=== PATIENT | female | born 1995 | race Two or more races ===

== ENCOUNTER 2024-04-21 11:20 | Observation (INO) | payer MEDICAID, SELFPAY ==
[2024-04-21 11:32] VITALS: BP 118/63; PULSE 84
[2024-04-21 11:58] VITALS: BP 118/63; PULSE 97; RESP 16; RESP 98; TEMP 36.8; O2SAT 98; BMI 28.5
[2024-04-21 12:07] LABS: ROM Kit Lot # 57807903; ROM Swab Mixed By: VALDM1; Rupture of Fetal Membranes Negative (Negative); Swb Mxed in Solvent 1 min? Yes
== END 2024-04-21 12:31 | disposition home or self-care (01) ==
PROVIDERS: Admitting Provider Obstetrics & Gynecology; Visit Provider Obstetrics & Gynecology
DX: Z34.83 Encounter for supervision of other normal pregnancy, third trimester (principal); Z3A.37 37 weeks gestation of pregnancy
CPT/HCPCS: 59025; 59899; 84112

== ENCOUNTER 2024-04-28 09:23 | Observation (INO) | payer MEDICAID, SELFPAY ==
[2024-04-28 09:33] VITALS: BP 109/67; PULSE 83
[2024-04-28 09:43] VITALS: BP 109/67; PULSE 83; RESP 16; RESP 98; TEMP 36.6
[2024-04-28 10:02] VITALS: BMI 28.6
[2024-04-28 10:02] LABS: Collection Type, Urine Clean Catch
[2024-04-28 10:09] LABS: Bacteria,Urine 2+; Bilirubin,Urine Negative (Negative); Blood,Urine Negative (Negative); Clarity,Urine Clear (Clear/Hazy); Color,Urine Colorless (Lt Yel-Yel); Glucose, Urine Negative (Negative); Ketones,Urine Negative (Negative); Leukocyte Esterase,Urine Negative (Negative); Nitrite,Urine Negative (Negative); Protein,Urine Negative (Neg - Trace); RBC,Urine < 1 /hpf (0-3); Specific Gravity,Urine 1.003 (1.001-1.035); Squamous Epithelial Cell,Urine < 1 /hpf (0-5); Urobilinogen,Urine Negative mg/dL (0.0-1.0); WBC,Urine 1 /hpf (0-5)
== END 2024-04-28 12:17 | disposition home or self-care (01) ==
PROVIDERS: Admitting Provider Obstetrics & Gynecology; Visit Provider Obstetrics & Gynecology
DX: O26.893 Other specified pregnancy related conditions, third trimester (principal); Z3A.38 38 weeks gestation of pregnancy; M54.9 Dorsalgia, unspecified; R30.9 Painful micturition, unspecified
CPT/HCPCS: 59025; 59899; 81001

== ENCOUNTER 2024-05-05 05:04 | Inpatient (IN) | payer MEDICAID, SELFPAY ==
[2024-05-05] VITALS (34 sets, daily range): BP systolic 93–126; BP diastolic 56–80; PULSE 67–98; RESP 12–20; TEMP 36.4–37.1; O2SAT 98–100; BMI 27.2
--- NOTE | 2024-05-05 06:24 | PD.LDHP ---
Documentation for date of: 05/05/24 OB Labor/Induct. HPI History of Present Illness History of present illness: 28-year-old -0-0-1 at 39 weeks and 3 days admitted for repeat low-transverse . Patient had previous x 1. care has been uneventful. Patient denies any contractions, leaking, bleeding. Baby has been moving well History of Present Dating criteria: LMP confirmed by 1st trimester US Labs Narrative: GTT within normal limits NIPT normal Meds Home Medications and Allergies Home Medications ?Medication ?Instructions ?Recorded ?Confirmed ?Type No Known Home Medications 04/21/24 04/21/24 History Allergies Allergy/AdvReac Type Severity Reaction Status Date / Time No Known Allergies Allergy Verified 04/21/24 12:03 OB Exam Constitutional Constitutional: no acute distress Routine HEENT Exam Head: Present normocephalic and atraumatic Eye: Present EOMI and PERRL ENT: Present mucous membranes moist Routine Neck Exam Neck: Present supple and trachea midline Routine Cardiovascular Exam Cardiovascular: Present RRR Routine Abdominal Exam Abdominal: Present soft and normoactive bowel sounds Detailed Labor and Delivery Exam Dilation (cm): Closed Comments: Category 1 heart tone Occasional contractions Routine Extremities Exam Extremities: Present full ROM Routine Skin Exam Skin: Present intact, dry and warm Routine Neurological Exam Neurological: Present alert, oriented X3 and CN II-XII intact Routine Psychiatric Exam Psychiatric: Present normal affect and normal thought process OB Results Impressions Impression: 28-year-old 2 para 1-0-0-1 at 39 and 3 admitted for repeat low-transverse . NIPT normal Anatomy within normal limits anterior placenta low suspicion of PAS Previous x 1 for failure to progress option was discussed with her earlier in care patient decided for a repeat low-transverse OB Assessment & Plan Additional Plan Additional Plan Comment: Repeat low-transverse DVT prophylaxis Antibiotic prophylaxis
[2024-05-05] MEDS: RINGERS LACTATED 1000 ML 1,000 ML 999 ML IV (06:50)
[2024-05-05] MEDS: FAMOTIDINE INJ 10 MG/ML VIAL 2 ML 20 MG IV (08:08)
[2024-05-05] MEDS: RINGERS LACTATED 1000 ML 1,000 ML 100 ML IV (08:08)
[2024-05-05] MEDS: CITRIC ACID/SODIUM CITR 15 ML UDC (BICITRA) 30 ML PO (08:08)
[2024-05-05] MEDS: ceFAZolin/D5W 2 GM IV 2 GM/100 ML BAG IV (08:09)
[2024-05-05 08:13] LABS: Basophils % (Auto) 0 % (0-2.5); Eosinophils # (Auto) 0.1 Thou/mm3 (0.0-0.5); Eosinophils % (Auto) 1 % (0-10); Hematocrit 31.5 % (36.0-46.0); Hemoglobin 10.3 g/dL (12.0-16.0); Immature Granulocytes % (Auto) 1 % (0-0); Immature Granulocytes Auto 0.12 Thou/mm3 (0.00-0.00); Lymphocytes # (Auto) 2.1 Thou/mm3 (1.0-4.8); Lymphocytes % (Auto) 22 % (10-50); Mean Corpuscular HGB Conc 32.7 g/dl (31.0-37.0); Mean Corpuscular Hemoglobin 24.6 pg (25.0-35.0); Mean Corpuscular Volume 75 fL (80-100); Monocytes # (Auto) 0.5 Thou/mm3 (0.0-0.8); Monocytes % (Auto) 6 % (0-12); Neutrophils # (Auto) 6.8 Thou/mm3 (1.8-7.7); Neutrophils % (Auto) 71 % (37-80); Nucleated Red Blood Cell % 0 /100 WBC (0); Platelet Count 249 Thou/mm3 (140-440); RDW Standard Deviation 41.1 fL (36.4-46.3); Red Blood Count 4.19 Miln/mm3 (4.00-5.20); White Blood Count 9.6 Thou/mm3 (3.6-11.0)
[2024-05-05 08:54] LABS: Syphilis Nonreactive (Nonreactive)
[2024-05-05] MEDS: OXYTOCIN in NS 20 units 20 UNIT/1,000 ML BAG 125 UNIT IV (09:30)
[2024-05-05] MEDS: KETOROLAC INJ 30 MG/ML VIAL IVP ×2 (10:23→22:16)
[2024-05-05 16:29] LABS: Basophils % (Auto) 0 % (0-2.5); Eosinophils % (Auto) 0 % (0-10); Hematocrit 29.4 % (36.0-46.0); Hemoglobin 9.8 g/dL (12.0-16.0); Immature Granulocytes % (Auto) 1 % (0-0); Immature Granulocytes Auto 0.09 Thou/mm3 (0.00-0.00); Lymphocytes # (Auto) 0.9 Thou/mm3 (1.0-4.8); Lymphocytes % (Auto) 6 % (10-50); Mean Corpuscular HGB Conc 33.3 g/dl (31.0-37.0); Mean Corpuscular Hemoglobin 24.6 pg (25.0-35.0); Mean Corpuscular Volume 74 fL (80-100); Monocytes # (Auto) 0.3 Thou/mm3 (0.0-0.8); Monocytes % (Auto) 2 % (0-12); Neutrophils # (Auto) 14.2 Thou/mm3 (1.8-7.7); Neutrophils % (Auto) 92 % (37-80); Nucleated Red Blood Cell % 0 /100 WBC (0); Platelet Count 263 Thou/mm3 (140-440); RDW Standard Deviation 40.2 fL (36.4-46.3); Red Blood Count 3.98 Miln/mm3 (4.00-5.20); White Blood Count 15.4 Thou/mm3 (3.6-11.0)
[2024-05-06 01:18] VITALS: BP 100/55; PULSE 95; RESP 18; TEMP 36.7; O2SAT 98
[2024-05-06] MEDS: HYDROcodone/APAP 5/325 TABLET 2 TAB PO ×3 (01:26→20:32)
[2024-05-06 04:52] VITALS: BP 97/54; PULSE 84; RESP 16; TEMP 36.7; O2SAT 97
--- NOTE | 2024-05-06 07:58 | PD.LDDELS ---
Data (Mendoza) Data Hx Section: No : 2 Term: 1 : 0 : 0
[2024-05-06 08:25] VITALS: BP 106/67; PULSE 89; RESP 17; TEMP 36.7; O2SAT 98
[2024-05-06 11:15] VITALS: BP 95/61; PULSE 85; RESP 17; TEMP 36.7; O2SAT 99
--- NOTE | 2024-05-06 14:48 | PD.LDPPPRG ---
Subjective Subjective Interval history: 28-year-old -0-0-2 postop day #1 status post repeat by Dr. Hardin. Patient is resting comfortably with no complaints. She is breast-feeding. She denies heavy vaginal bleeding, her pain is under control she is tolerating a general diet and ambulating. Exam Vital Signs Temp Pulse Resp BP Pulse Ox O2 Del Method 98.0 F 85 17 95/61 99 Room Air 05/06/24 11:15 05/06/24 11:15 05/06/24 11:15 05/06/24 11:15 05/06/24 11:15 05/06/24 11:15 Narrative Exam Patient is alert and oriented x 3 in no apparent distress. He is Amharic-speaking only Routine Abdominal Exam Abdominal: Present soft and wound Comments: Incision clean dry and intact Objective Labs 05/05/24 16:09 Labs: Laboratory Results - last 24 hr 05/05/24 16:09 WBC 15.4 H D RBC 3.98 L Hgb 9.8 L Hct 29.4 L MCV 74 L MCH 24.6 L MCHC 33.3 RDW Std Deviation 40.2 Plt Count 263 Neut % (Auto) 92 H Lymph % (Auto) [address] [place] % (Auto) 2 Eos % (Auto) 0 Baso % (Auto) 0 Neut # (Auto) 14.2 H Lymph # (Auto) 0.[address] # (Auto) 0.3 Eos # (Auto) 0.0 Baso # (Auto) 0.0 Immature Gran # (Auto) 0.09 H Absolute Nucleated RBC 0.00 Immature Gran % 1 H Nucleated RBC % 0 Assessment & Plan Problem List (1) Previous delivery affecting , delivered: Status: Acute Assessment and plan: Stop day #1 status post elective repeat section at term Plan Comment Plan Comment: Continue routine postop care. Consider discharge in the morning. Time Spent With Patient Time: Total time spent is greater than 50% in coordination of care (as documented) at patient's floor/unit and/or counseling patient: Time with patient: less than 15 minutes
--- NOTE | 2024-05-06 16:16 | PD.GYNPROC ---
Operative Note - SPORT PSYCHOLOGIST Procedure Date of procedure: 05/05/24 Procedure Performed: Repeat low-transverse Indication: Previous x 1 Pre-Op diagnosis: Same Post-Op diagnosis: Same Anesthesia type: Spinal Procedure description: Informed consent was obtained and the patient was taken to the operating room.? Identity was confirmed by double identifiers and she was placed on the operating table.The abdomen and perineum were prepped in the usual sterile fashion and a Rodriguez catheter was placed to continuous drainage.? Sterile drapes were applied.??A Pfannenstiel skin incision was made with a scalpel and carried to the subcutaneous fat up to the rectus fascia.? The rectus fascia was incised on either side of the midline and the incisions were extended bilaterally.? The fascia was gently dissected off the ventral surface of the rectus muscle both superiorly and inferiorly. Carefully a peritioneal window craeted hysterotomy incision made and extended bluntly with finger. Rupture of membranes revealed clear fluid. The baby was found in cephalic position and delivered via vertex. The umbilical cord , was doubly clamped, divided and the was handed over to the waiting team.? placenta delivered by controlled cord traction . The interior of the uterus was now thorougly cleaned of all blood and debris and membranes.? 2 cavities and the uterus verified the? hysterotomy was closed using 0 vicryl suture in double layers. Once the repair was completed the hysterotomy was inspected, was noted to be adequately hemostatic . Muscle oozing stopped by bovie. The rectus fascia was repaired using Vicry 0 in a running fashion.? The subcutaneous layer was now, approximated with 3-0 vicryl in double layers.? All bleeding points were cauterized using the Bovie.?The skin was closed using 4-0 Monocryl in a subcuticular fashion.? The skin was cleaned and a sterile dressing was applied. The patient was now undraped, the abdomen and back were thoroughly cleaned and she was now transferred to the recovery room in a stable Estimated blood loss (ml): 400 Complications: none Surgical staff Operation Date: 05/05/24 08:30 Case Staff APPLICATION DEVELOPMENT SPECIALIST: Erik Bustillo RNrace engine builder: Chhaya Pedroza Diagnosis Problem List Completed Was Problem List Reviewed/Reconciled?: Yes
--- NOTE | 2024-05-06 16:21 | PD.LDDELS ---
Data (Mendoza) Data Hx Section: No : 2 Term: 1 : 0 : 0
--- NOTE | 2024-05-06 17:07 | PC.SS ---
COMMUNITY RECREATION COORDINATOR conducted bedside contact with the patient to discuss nursing referral indicating that the patient was from [place] under asylum.? COMMUNITY RECREATION COORDINATOR utilized translation services.? COMMUNITY RECREATION COORDINATOR introduced self, role and basis of referral.? Patient confirmed that she arrived from [place] approximately 3 years ago.? Infant, Forrest; is the patient?s second child.? Other child is a 4 year old boy.? FOB, Moris Kaiser; will be involved in the rearing of the .? Patient is aligned with WIC.? Patient is not accessing SNAP or TANF.? Patient denies history of alcohol/drug abuse.? Patient denies CWS intervention.? Patient denies episodes of domestic violence.? Patient denies possessing a history of mental health, reports no current possession of depression or anxiety.? Patient plans on combo feeding the .? Patient has access to appropriate supplies and equipment; to include a car seat.? FOB will provide transportation upon discharge.? Patient describes possessing support system consisting of FOB.? COMMUNITY RECREATION COORDINATOR provided the patient with community resources to include Parenting Network and Warm Line.? No further intervention required at this time, psychotherapist social worker will be available to address any further concerns.? COMMUNITY RECREATION COORDINATOR updated bedside nurse.?
[2024-05-06 20:00] VITALS: BP 106/59; PULSE 85; RESP 16; TEMP 36.6; O2SAT 96
[2024-05-07 04:00] VITALS: BP 97/58; PULSE 82; RESP 19; TEMP 37; O2SAT 98
[2024-05-07 08:00] VITALS: BP 95/60; PULSE 93; RESP 16; TEMP 36.9; O2SAT 98
--- NOTE | 2024-05-07 08:04 | PD.LDDS ---
DS: Providers Provider Date of admission: 05/05/24 05:04 Primary care physician: Physician No Primary/Family Admitting Provider: Jesica Hardin MD Attending Provider on Admission: Jesica Hardin MD Consults: 05/05/24 08:23 Referral Routine Comment: Attending Provider on DC: Jesica Hardin MD Discharging Provider: Jesica Hardin MD DS: Diagnosis Problem List Completed Was Problem List Reviewed/Reconciled?: Yes Summary/Hosp Course Brief History: 28-year-old , s/p rltcs at 39 weeks and 3 days has been admitted for 2 days. Patient has met all postop milestones including ambulation, passing gas, tolerating oral diet without any nausea vomiting Peripartum Data Procedures: Procedures Operation Date: 05/05/24 08:30 Actual Procedure Side Surgeon p in OB Jesica Hardin MD Status at Discharge Cognitive/behavioral status at discharge: Stable Time Spent with Patient Time attestation: Total time spent providing and/or coordinating discharge services: Exam Vital Signs Temp Pulse Resp BP Pulse Ox O2 Del Method 98.6 F 82 19 97/58 L 98 Room Air 05/07/24 04:00 05/07/24 04:00 05/07/24 04:00 05/07/24 04:00 05/07/24 04:00 05/07/24 04:00 Constitutional Constitutional: no acute distress Routine HEENT Exam Head: Present normocephalic and atraumatic Eye: Present EOMI and PERRL ENT: Present mucous membranes moist Routine Neck Exam Neck: Present supple and trachea midline Routine Respiratory Exam Respiratory: Present chest non-tender, lungs clear, normal breath sounds and no resp distress Routine Cardiovascular Exam Cardiovascular: Present RRR Routine Abdominal Exam Abdominal: Present soft and normoactive bowel sounds Routine Extremities Exam Extremities: Present full ROM Routine Skin Exam Skin: Present intact, dry and warm Routine Neurological Exam Neurological: Present alert, oriented X3 and CN II-XII intact Routine Psychiatric Exam Psychiatric: Present normal affect and normal thought process Discharge Plan Plan Patient Disposition: HOME (Self Care) Prescriptions/Referrals Prescriptions/Med Rec: New acetaminophen-codeine 300-15 mg tablet 1 tab PO Q12H PRN (Reason: pain) Qty: 14 0RF ibuprofen 800 mg tablet 800 mg PO Q8H PRN (Reason: pain) Qty: 30 0RF Referrals: No Primary/Family,Physician [Primary Care Provider] - Patient/Caregiver Discharge Instructions Education Materials: C Section Dc Print Language: Paraguayan Stand Alone Forms: Akanksha Award Info., Patient Portal Info Letter Planned Discharge Date 05/07/24
[2024-05-07] MEDS: DIPHTH,PERTUSS(ACELL),TET VAC 0.5 ML SYR IMi (13:55)
--- NOTE | 2024-05-07 19:48 | PC.NURSE ---
Late Entry 05/07/20231948 patient is discharged, however, when checking chart, noticed the Pepcid IV x1 and Bacitra 30ml po not showing on the Mar. Also, gave the Ancef, but that medication was administered. Both meds were given to Lissy Almonte RN for a emergent section. Kiersten Henry RNC
== END 2024-05-07 15:00 | disposition home or self-care (01) | DRG 540 ==
LOC: S4SX 08:03 → S4NX 08:41
PROVIDERS: Admitting Provider Student in an Organized Health Care Education/Training Program; Visit Provider Student in an Organized Health Care Education/Training Program
PROC: 10D00Z1 Extraction of Products of Conception, Low, Open Approach (ICD-10-PCS; CPT 59514; principal; 2024-05-05 07:30)
DX: O34.211 Maternal care for low transverse scar from previous cesarean delivery (principal); Z37.0 Single live birth; Z3A.39 39 weeks gestation of pregnancy
CPT/HCPCS: 36415; 59409; 85025; 86780; 86850; 86900; 86901; 90715; 94762; J0689; J1100; J1885; J2274; J2371; J2405; J2590; J2704; J2795; J3010; J3490; J7120; A9270; J2270

== ENCOUNTER 2024-05-25 13:08 | Emergency (ER) | payer MEDICAID, SELFPAY ==
[2024-05-25 13:24] VITALS: BP 108/70; PULSE 90; RESP 18; TEMP 37.5; O2SAT 98
--- NOTE | 2024-05-25 13:49 | PD.EDRME ---
Rapid Medical Screening Exam RME Arrival date/time: 05/25/24 13:08 28 year old female present to ED for c/o of lower abd pain recent C/S May 05. I have greeted and performed a focused initial assessment of this patient. A comprehensive ED assessment and evaluation of the patient, analysis of all test results, and completion of the medical decision making process will be conducted by additional ED providers. Chief Complaint: General Adult/Misc Complain Time Seen by Provider: 05/25/24 13:13 Vital signs: Vital Signs Temperature 99.5 F 05/25/24 13:24 Pulse Rate 90 05/25/24 13:24 Respiratory Rate 18 05/25/24 13:24 Blood Pressure 108/70 05/25/24 13:24 Pulse Oximetry (%) 98 05/25/24 13:24 Oxygen Delivery Method Room Air 05/25/24 13:24
--- NOTE | 2024-05-25 13:50 | XR_ITS ---
Examination: Ultrasound soft tissue pelvis Technique: Grayscale sonographic images soft tissue pelvis Exam date and time: May 25, 2024 1547 hrs. Indications: Status post May 05, 2024 with incision pain and swelling worse today Findings: Complex echogenic mass cystic solid at the area concern right lower abdomen midline pelvic region 5.0 x 2.6 x 2.7 cm most consistent with abscess Impression: Soft tissue mass most consistent with abscess at the area concern anterior right pelvis
[2024-05-25 16:40] LABS: Basophils % (Auto) 0 % (0-2.5); Eosinophils % (Auto) 0 % (0-10); Hematocrit 32.2 % (36.0-46.0); Immature Granulocytes % (Auto) 1 % (0-0); Immature Granulocytes Auto 0.14 Thou/mm3 (0.00-0.00); Lymphocytes # (Auto) 2.3 Thou/mm3 (1.0-4.8); Lymphocytes % (Auto) 17 % (10-50); Mean Corpuscular HGB Conc 31.1 g/dl (31.0-37.0); Mean Corpuscular Hemoglobin 23.3 pg (25.0-35.0); Mean Corpuscular Volume 75 fL (80-100); Monocytes # (Auto) 0.7 Thou/mm3 (0.0-0.8); Monocytes % (Auto) 6 % (0-12); Neutrophils # (Auto) 10.3 Thou/mm3 (1.8-7.7); Neutrophils % (Auto) 76 % (37-80); Nucleated Red Blood Cell % 0 /100 WBC (0); Platelet Count 719 Thou/mm3 (140-440); RDW Standard Deviation 45.9 fL (36.4-46.3); Red Blood Count 4.29 Miln/mm3 (4.00-5.20); White Blood Count 13.5 Thou/mm3 (3.6-11.0)
[2024-05-25 16:59] LABS: Albumin, Serum 4.1 gm/dL (3.5-5.0); Albumin/Globulin Ratio 1.1 (1.2-2.2); Alkaline Phosphatase 131 U/L (46-116); Anion Gap 9 (7-16); Aspartate Amino Transferase 15 U/L (0-34); BUN/Creatinine Ratio 20 Ratio (12-20); Bilirubin,Total 0.4 mg/dL (0.3-1.2); Blood Urea Nitrogen 12 mg/dL (9-23); Calcium 8.8 mg/dL (8.3-10.6); Calcium (Corrected) 8.8 mg/dL (8.5-10.1); Carbon Dioxide 27.2 mMol/L (20.0-31.0); Chloride 105 mMol/L (98-107); Creatinine (Component) 0.6 mg/dL (0.6-1.3); Globulin 3.8 gm/dL (2.3-3.5); Glucose 107 mg/dL (74-106); Osmolality,Calculated 280 (275-295); Potassium 3.9 mMol/L (3.4-5.1); Sodium 141 mMol/L (136-145); Total Protein 7.9 gm/dL (5.7-8.2); eGFR > 60 See Note
[2024-05-25 17:09] LABS: Alanine Aminotransferase 9 U/L (10-49)
[2024-05-25 18:17] VITALS: BP 111/77; PULSE 85; RESP 20; TEMP 37.7; O2SAT 99
--- NOTE | 2024-05-25 18:51 | EKG_ITS ---
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
--- NOTE | 2024-05-25 18:54 | EDNOTE_ITS ---
ED General RME/HPI General Chief complaint: General Adult/Misc Complain Stated complaint: C. SECTION 05/05/24; INCISION INFLAMMED, SWOLLEN Time Seen by Provider: 05/25/24 13:13 Arrival date/time: 05/25/24 13:08 RME / HPI RME / HPI narrative: 05/25/24 13:08 28 year old female present to ED for c/o of lower abd pain recent C/S May 05. I have greeted and performed a focused initial assessment of this patient. A comprehensive ED assessment and evaluation of the patient, analysis of all test results, and completion of the medical decision making process will be conducted by additional ED providers. Dr. Boyce?s Main ED Evaluation: 28-year-old female presents to the emergency department complaining of swelling, redness and tenderness to the right side of her incisional wound which all started today. Patient does also have chills and sweats at home which started about a week ago. Patient delivered via here in the hospital on 05/06. She was DC'd with p.o. Keflex 500 mg twice daily x 10 days. She has a bottle with her and they are still 10 tabs. She is obviously not been taking that properly. Patient is describing pain to the localized area but no generalized abdominal pain, lower back pain, lower extremities pain. She also complains of dysuria and urinary frequency. Related Data Previous Rx's ?Medication ?Instructions ?Recorded acetaminophen 300 mg-codeine 15 mg 1 tab PO Q12H PRN p ain #14 tabs 05/07/24 tablet ibuprofen 800 mg tablet 800 mg PO Q8H PRN pain #30 t abs 05/25/24 sulfamethoxazole 800 1 tab PO BID #20 tabs mg-trimethoprim 160 mg tablet (Bactrim DS) Allergies Allergy/AdvReac Type Severity Reaction Status Date / Time No Known Allergies Allergy Verified 05/25/24 13:17 Review of Systems Review of Systems Systems Reviewed: All systems reviewed, normal except as documented Past Medical History Past Medical History NEUROLOGIC: Negative Neurological Disorders or Seizures CARDIAC: Negative Cardiac Disorders, Cardiac Arrhythmia, Atrial Fibrillation, Angina, Coronary Artery Disease, Atherosclerotic Heart Disease, Aneurysm, Congestive Heart Failure, Congenital Heart Disease, Cardiomyopathy or Deep Vein Thrombosis RESPIRATORY: Negative Chronic Obstructive Pulmonary Disease (COPD) GASTROINTESTINAL: Negative Gastrointestinal Disorders or Hepatitis GENITOURINARY: Negative Genitourinary Disorders or Renal Disease REPRODUCTIVE: Negative Endometriosis, Genital Herpes, Gonorrhea, Pelvic Inflammatory Disease, Previous Pregnancies, Syphilis or Uterine Prolapse MUSCULOSKELETAL: Negative Musculoskeletal Disorders or Carpal Tunnel Syndrome ENT: Negative Cataracts ENDOCRINE: Negative Endocrine Disorders, Diabetes Mellitus Type 1 or Diabetes Mellitus Type 2 HEMATOLOGIC: Negative Blood Disorders OTHER HISTORY: Negative Hospitalization, Autoimmune Disease, Down Syndrome, Developmental Delay, Shingles, Falls, Blood Transfusions, Blood Transfusion Reaction, Anesthesia Reactions, Organ Transplant, Chemotherapy, Radiation Therapy, Hyperbaric Therapy, MRSA, VRSA, Vancomycin-Resistant Enterococci, Human Immunodeficiency Virus (HIV), Chicken Pox, Measles, Mumps, Rubella (Dutch Measles), Pertussis, Clostridium Difficile or Cancer Family History FAMILY HISTORY: Negative Family Psychiatric Problems, Family Respiratory Disorders, Family Cardiac Disorders, Family Gastrointestinal Problems, Family Cancer, Family Surgery or Family Anesthesia Reaction OTHER FAMILY HX: non-contributory Surgical History SURGICAL: Positive Abdominal Surgery and Section (MAY 05, 2024); Negative Cardiac Surgery, Open Heart Surgery, Coronary Artery Bypass Graft, Valve Replacement, Vascular Surgery, Coronary Stent, Cardiac Catheterization, Pacemaker, Angiogram, Auto Implanted Cardiovert Defib, Carotid Endarterectomy, Endocrine Surgery, Thyroidectomy, Ear Surgery, Tympanostomy Tube, Eye Surgery, Nose Surgery, Oral Surgery, Tonsillectomy, Adenoidectomy, Cochlear Implant, Corneal Transplant, Throat Surgery, Tracheostomy, Gastric Bypass Surgery, Gastrostomy, Bowel Surgery, Nephrectomy, Transurethral Resection, Joint Replacement, Amputation, Open Reduction Internal Fixation, Arthroscopy, Neurologic Surgery, Brain Shunt, Mastectomy, Lumpectomy, Hysterectomy, Tubal Ligation, Vasectomy or Organ Transplant OTHER SURGICAL HX: 2 sections Social History SOCIAL: . No ETOH, illicit drug use or tobacco SMOKING STATUS: Never smoker Past Medical History Comments PMH COMMENT: benign PMhx ED Exam Narrative Physical exam: GENERAL APPEARANCE: alert and oriented x 4, well-developed, well-nourished, no acute distress VITALS: All vitals were reviewed and the pulse ox is 98% on room air, which is normal according to my interpretation. HEENT: Normocephalic, atraumatic; pupils equal, round, reactive to light; EOMI; mucous membranes pink, moist; oropharynx clear NECK: Supple LUNGS: CTABL; no wheezes, no rales, no rhonchi HEART: Regular rate, regular rhythm; normal S1, S2; no murmurs ABDOMEN: non distended; normal BS; soft, no guarding, no rebound; no masses, no organomegaly, no hernia; has a well-healing surgical incision with the right quarter of the incision now being swollen, erythematous, hot to touch, and exquisitely tender, is firm to touch, no fluctuance BACK: no CVA tenderness EXTREMITIES: atraumatic; no edema NEUROLOGIC: awake; alert and oriented x4; cranial nerves II-XII grossly intact; no focal sensory or motor deficits PSYCHIATRIC: appropriate mood and affect SKIN: warm, dry, normal color; no rashes Course Quality Measures none Orders Category Date Time Status Maintenance Operator STAT Care 05/25/24 18:51 Completed Continuous Pulse Oximetry STAT Care 05/25/24 18:51 Completed EKG (ED ONLY) *Do not use* NOW Care 05/25/24 18:51 Completed In and Out Catheter X1PRN Care 05/25/24 18:51 Completed NPO STAT Care 05/25/24 18:51 Completed EKG (ED Only) Stat Exams 05/25/24 18:51 Draft US soft tissue lower back abd Stat Exams 05/25/24 13:50 Completed B-Type Natriuretic Peptide Stat Lab 05/25/24 16:10 Completed Blood Culture (Lab) Stat Lab 05/25/24 16:46 Received CBC Stat Lab 05/25/24 16:18 Completed CMP [Comprehensive Metabolic Panel] Stat Lab 05/25/24 16:18 Completed LDH (Lactate Dehydrogenase) Stat Lab 05/25/24 16:18 Completed Lactate (Lactic Acid) Stat Lab 05/25/24 19:18 Completed Lipase Stat Lab 05/25/24 16:18 Completed Magnesium Stat Lab 05/25/24 16:18 Completed Partial Thromboplastin Time Stat Lab 05/25/24 16:46 Completed Phosphorous Stat Lab 05/25/24 16:18 Completed Procalcitonin Stat Lab 05/25/24 16:18 Completed Prothrombin Time with INR Stat Lab 05/25/24 16:46 Completed Troponin I Stat Lab 05/25/24 16:18 Completed Urinalysis Stat Lab 05/25/24 19:25 Completed Urine Culture Stat Lab 05/25/24 19:25 Received Acetaminophen Ivpb [Ofirmev Inj] Med 05/25/24 18:53 Discontinued 1,000 mg in 100 ml IV X1 HYDROmorphone INJ [Dilaudid Inj] Med 05/25/24 19:00 Discontinued 0.5 mg IVP Q30M PRN Ibuprofen Tab [Motrin Tab] Med 05/25/24 16:02 Discontinued 600 mg PO X1 ONE Lidocaine 1% 20 ml [Xylocaine 1% 20 ML] Med 05/25/24 19:39 Discontinued 20 ml INFL X1 ONE Ondansetron Inj [Zofran Inj] Med 05/25/24 18:52 Discontinued 4 mg IV X1 ONE Piper/Tazo Inj [Zosyn Inj] 3.375 gm Med 05/25/24 18:58 Discontinued SODIUM CHLORIDE 0.9% (Popper) [NS 0.9% (Popper)] 50 ml IV X1 Vital Signs Vital signs: Vital Signs Temperature 99.5 F 05/25/24 13:24 Pulse Rate 90 05/25/24 13:24 Respiratory Rate 18 05/25/24 13:24 Blood Pressure 108/70 05/25/24 13:24 Pulse Oximetry (%) 98 05/25/24 13:24 Oxygen Delivery Method Room Air 05/25/24 13:24 [facility] Patient data External records reviewed:: [facility] previous records (Per chart review, patient has no previous ED visits or admissions to this facility.) Clinical information provided by:: patient Social determinants that could affect healthcare access:: none Patient has the following chronic illnesses:: none How is presenting disease/condition affected by chronic disease/condition?: no chronic disease Evaluation data The following diagnostics were reviewed and interpreted by me:: lab results, radiology exam(s) and EKG tracing(s) Lab and/or radiology exams considered but not ordered:: none Interpretation Summary: WBC count is 13.5, PT and INR are normal, PTT is normal, CMP is normal, BNP is normal, Lipase is normal, Lactic Acid is normal, Procalcitonin is normal, UA shows 218 RBCs and 56 WBCs, according to my interpretation. [facility] Report Signed Patient: ALICIA BLAIR [facility] Record#: [id number] Birthdate: 1995 Age/Sex: 28 / F Location: [facility] Attending Dr: Ordering Physician: Dony Botello PA-C Date of Service: 05/25/24 Procedure(s): US soft tissue lower back abd Accession Number(s): [id number] cc: Manish Almonte MD; NO PRIMARY/FAMILY,PHYSICIAN; Dony Botello PA-C~ Examination: Ultrasound soft tissue pelvis Technique: Grayscale sonographic images soft tissue pelvis Exam date and time: May 25, 2024 1547 hrs. Indications: Status post May 05, 2024 with incision pain and swelling worse today Findings: Complex echogenic mass cystic solid at the area concern right lower abdomen midline pelvic region 5.0 x 2.6 x 2.7 cm most consistent with abscess Impression: Soft tissue mass most consistent with abscess at the area concern anterior right pelvis Dictated By: Manish Almonte MD Signed By: <Electronically signed by Manish Almonte MD in OV> 05/25/24 5541 Medications Medications considered but not ordered:: none Medication administrations:: Medication Administration History Discontinued Medications Hydromorphone HCl (Hydromorphone Inj 2 Mg/Ml Vial) 0.5 mg IVP Q30M PRN PRN Reason: PAIN Stop: 05/29/24 18:59 Acetaminophen (Ofirmev Inj) 1,000 mg in 100 mls @ 250 mls/hr IV X1 ONE Stop: 05/25/24 19:16 Last Infusion: 05/25/24 20:00 Dose: Infused Documented By: Admin: 05/25/24 19:33 Dose: 250 mls/hr Documented By: CCT Piperacillin Sod/Tazobactam (Sod 3.375 gm/ Sodium Chloride) 50 mls @ 100 mls/hr IV X1 ONE Stop: 05/25/24 19:27 Last Infusion: 05/25/24 20:45 Dose: Infused Documented By: Admin: 05/25/24 20:12 Dose: 100 mls/hr Documented By: CCT Ibuprofen (Ibuprofen Tab 600 Mg Tablet) 600 mg PO X1 ONE Stop: 05/25/24 16:03 Last Admin: 05/25/24 19:34 Dose: 600 mg Documented By: CCT Lidocaine HCl (Lidocaine Hcl 1% 20 Ml Vial) 20 ml INFL X1 ONE Stop: 05/25/24 19:40 Last Admin: 05/25/24 19:45 Dose: 20 ml Documented By: CCT Comments: Administered by Dr. Merrill Ondansetron HCl (Ondansetron Inj 2 Mg/Ml Inj 2 Ml) 4 mg IV X1 ONE; Protocol Stop: 05/25/24 18:53 Last Admin: 05/25/24 20:11 Dose: 4 mg Documented By: CCT see above Consultations Consultation(s) initiated? (list below): Yes Consultation #1 (Physician, Specialty, Details): See MDM narrative. Diagnosis Differential Diagnosis ED Complaint MDM: abscess, cellulitis, UTI, renal colic Most likely diagnosis given after review of the tests above:: see below Admission Indicated Admission indicated?: not indicated Explain why admission is indicated or not indicated:: Dr. Merrill does not recommend admission at this time and feels the patient can be discharged home. Admission Request Was there a request for admission?: No Disposition Plan Disposition Plan: Discharge Discharge Attestation Discharge Attestation: The patient and all family members were given an opportunity to ask questions and understood the discharge instructions. Discharge instructions specifically effects, indications for sooner follow up or return to the emergency department, and the expected course of current diagnosis. Patient condition: Stable Medical Decision Making MDM Narrative MDM Narrative: Patient's workup shows a leukocytosis at 13.5 and her incisional ultrasound shows a likely postsurgical abscess. I have ordered basically a sepsis workup but no sepsis alert, Zosyn IV, CT of the pelvis to rule out deeper structure involvement. I called and spoke with Dr. Rojas who is the OB on-call for [facility]. Patient surgeon is Dr. Hardin. She has further CT, IV antibiotics and she will admit the patient to the OB floor. 20:37 normal sinus rhythm at 72 with a normal axis, no ectopy no acute ischemia 20:20 Dr. Merrill came to the emergency department and saw the patient. She I&D the abscess in the exam room. Patient is feeling better. Will discharge home as per Dr. Merrill's recommendation. Dr. Rojas is called in prescription for antibiotics. Differential Diagnosis Differential Diagnosis: abscess, cellulitis, UTI, renal colic Lab Data 05/25/24 16:18 05/25/24 16:18 Labs: Lab Results 05/25/24 05/25/24 05/25/24 Range/Units 16:10 16:18 16:46 WBC 13.5 H (3.6-11.0) Thou/mm3 RBC 4.29 (4.00-5.20) Miln/mm3 Hgb 10.0 L (12.0-16.0) g/dL Hct 32.2 L (36.0-46.0) % MCV 75 L (80-100) fL MCH 23.3 L (25.0-35.0) pg MCHC 31.1 (31.0-37.0) g/dl RDW Std Deviation 45.9 (36.4-46.3) fL Plt Count 719 H D (140-440) Thou/mm3 Neut % (Auto) 76 (37-80) % Lymph % (Auto) 17 (10-50) % Ward % (Auto) 6 (0-12) % Eos % (Auto) 0 (0-10) % Baso % (Auto) 0 (0-2.5) % Neut # (Auto) 10.3 H (1.8-7.7) Thou/mm3 Lymph # (Auto) 2.3 (1.0-4.8) Thou/mm3 Ward # (Auto) 0.7 (0.0-0.8) Thou/mm3 Eos # (Auto) 0.0 (0.0-0.5) Thou/mm3 Baso # (Auto) 0.0 (0.0-0.2) Thou/mm3 Immature Gran # (Auto) 0.14 H (0.00-0.00) Thou/mm3 Absolute Nucleated RBC 0.00 (0.00-0.00) Thou/mm3 Immature Gran % 1 H (0-0) % Nucleated RBC % 0 (0) /100 WBC PT 11.8 (9.0-12.2) Seconds INR 1.1 (0.9-1.3) APTT 30.8 (22.0-36.0) Seconds Sodium 141 (136-145) mMol/L Potassium 3.9 (3.4-5.1) mMol/L Chloride 105 (98-107) mMol/L Carbon Dioxide 27.2 (20.0-31.0) mMol/L Anion Gap 9 (7-16) BUN 12 (9-23) mg/dL Creatinine 0.6 (0.6-1.3) mg/dL Estim Creat Clear Calc Not Performed. eGFR > 60 (60 - ) See Note BUN/Creatinine Ratio 20 (12-20) Ratio Glucose 107 H (74-106) mg/dL Calculated Osmolality 280 (275-295) Lactic Acid (0.4-2.0) mMol/L Calcium 8.8 (8.3-10.6) mg/dL Corrected Calcium 8.8 (8.5-10.1) mg/dL Phosphorus 4.0 (2.4-5.1) mg/dL Magnesium 2.2 (1.6-2.6) mg/dL Total Bilirubin 0.4 (0.3-1.2) mg/dL AST 15 (0-34) U/L ALT 9 L (10-49) U/L Alkaline Phosphatase 131 H (46-116) U/L Lactate Dehydrogenase 249 H (120-246) U/L Troponin I < 0.020 (0.0-0.045) ng/mL B-Natriuretic Peptide 24 (0-100) pg/mL Total Protein 7.9 (5.7-8.2) gm/dL Albumin 4.1 (3.5-5.0) gm/dL Globulin 3.8 H (2.3-3.5) gm/dL Albumin/Globulin Ratio 1.1 L (1.2-2.2) Lipase 49 (12-53) U/L Procalcitonin 0.05 (0.0-0.49) ng/ml Ur Collection Type Urine Color (Lt Yel-Yel) Urine Clarity (Clear/Hazy) Urine pH (5.0-7.0) Ur Specific [place] (1.001-1.035) Urine Protein (Neg - Trace) Urine Glucose (UA) (Negative) Urine Ketones (Negative) Urine Blood (Negative) Urine Nitrite (Negative) Urine Bilirubin (Negative) Urine Urobilinogen (Auto) (0.0-1.0) mg/dL Ur Leukocyte Esterase (Negative) Urine RBC (0-3) /hpf Urine WBC (0-5) /hpf Ur Squamous Epith Cells (0-5) /hpf Urine Bacteria (None) 05/25/24 05/25/24 Range/Units 19:18 19:25 WBC (3.6-11.0) Thou/mm3 RBC (4.00-5.20) Miln/mm3 Hgb (12.0-16.0) g/dL Hct (36.0-46.0) % MCV (80-100) fL MCH (25.0-35.0) pg MCHC (31.0-37.0) g/dl RDW Std Deviation (36.4-46.3) fL Plt Count (140-440) Thou/mm3 Neut % (Auto) (37-80) % Lymph % (Auto) (10-50) % Ward % (Auto) (0-12) % Eos % (Auto) (0-10) % Baso % (Auto) (0-2.5) % Neut # (Auto) (1.8-7.7) Thou/mm3 Lymph # (Auto) (1.0-4.8) Thou/mm3 Ward # (Auto) (0.0-0.8) Thou/mm3 Eos # (Auto) (0.0-0.5) Thou/mm3 Baso # (Auto) (0.0-0.2) Thou/mm3 Immature Gran # (Auto) (0.00-0.00) Thou/mm3 Absolute Nucleated RBC (0.00-0.00) Thou/mm3 Immature Gran % (0-0) % Nucleated RBC % (0) /100 WBC PT (9.0-12.2) Seconds INR (0.9-1.3) APTT (22.0-36.0) Seconds Sodium (136-145) mMol/L Potassium (3.4-5.1) mMol/L Chloride (98-107) mMol/L Carbon Dioxide (20.0-31.0) mMol/L Anion Gap (7-16) BUN (9-23) mg/dL Creatinine (0.6-1.3) mg/dL Estim Creat Clear Calc eGFR (60 - ) See Note BUN/Creatinine Ratio (12-20) Ratio Glucose (74-106) mg/dL Calculated Osmolality (275-295) Lactic Acid 0.6 (0.4-2.0) mMol/L Calcium (8.3-10.6) mg/dL Corrected Calcium (8.5-10.1) mg/dL Phosphorus (2.4-5.1) mg/dL Magnesium (1.6-2.6) mg/dL Total Bilirubin (0.3-1.2) mg/dL AST (0-34) U/L ALT (10-49) U/L Alkaline Phosphatase (46-116) U/L Lactate Dehydrogenase (120-246) U/L Troponin I (0.0-0.045) ng/mL B-Natriuretic Peptide (0-100) pg/mL Total Protein (5.7-8.2) gm/dL Albumin (3.5-5.0) gm/dL Globulin (2.3-3.5) gm/dL Albumin/Globulin Ratio (1.2-2.2) Lipase (12-53) U/L Procalcitonin (0.0-0.49) ng/ml Ur Collection Type Clean Catch Urine Color Yellow (Lt Yel-Yel) Urine Clarity Turbid A (Clear/Hazy) Urine pH 7.0 (5.0-7.0) Ur Specific [place] 1.027 (1.001-1.035) Urine Protein Trace (Neg - Trace) Urine Glucose (UA) Negative (Negative) Urine Ketones Negative (Negative) Urine Blood 3+ A (Negative) Urine Nitrite Negative (Negative) Urine Bilirubin Negative (Negative) Urine Urobilinogen (Auto) 2.0 (0.0-1.0) mg/dL Ur Leukocyte Esterase Positive (Negative) Urine RBC 218 H (0-3) /hpf Urine WBC 56 H (0-5) /hpf Ur Squamous Epith Cells 0 (0-5) /hpf Urine Bacteria Rare (None) Discharge Plan Plan Patient Disposition: HOME (Self Care) Disposition Comment: Stable for discharge Patient condition on transfer: Stable Prescriptions/Referrals Prescriptions/Med Rec: New ibuprofen 800 mg tablet 800 mg PO Q8H PRN (Reason: pain) Qty: 30 0RF sulfamethoxazole-trimethoprim [Bactrim DS] 800-160 mg tablet 1 tab PO BID Qty: 20 0RF Continued acetaminophen-codeine 300-15 mg tablet 1 tab PO Q12H PRN (Reason: pain) Qty: 14 0RF Discontinued ibuprofen 800 mg tablet 800 mg PO Q8H PRN (Reason: pain) Qty: 30 0RF Referrals: Jesica Hardin MD [Physician] - In 1 week No Primary/Family,Physician [Primary Care Provider] - In 1 week Problem List Clinical Impression: Abscess after procedure, Previous delivery affecting , delivered Patient/Caregiver Discharge Instructions Discharge Activity: activity as tolerated Education Materials: Abscess Drainage, Preventing Surgical Site Infections, ED Post Op Wound Check, Infection Additional Instructions: Please return to the emergency department if you have any worsening or any further medical problems. Otherwise you should follow-up with Dr. Hardin in her office. I have given you her office information and I would just call and make an appointment for the next several days. Print Language: [place] Stand Alone Forms: [employer] Award Info., Patient Portal Info Letter
--- NOTE | 2024-05-25 19:13 | PD.GYNHP ---
Documentation for date of: 05/25/24 Meds Home Medications and Allergies Allergies Allergy/AdvReac Type Severity Reaction Status Date / Time No Known Allergies Allergy Verified 05/25/24 13:17 Exam - REINSURANCE ANALYST Vital Signs Temp Pulse Resp BP Pulse Ox O2 Del Method FiO2 99.8 F 85 20 111/77 99 Room Air 98 05/25/24 18:17 05/25/24 18:17 05/25/24 18:17 05/25/24 18:17 05/25/24 18:17 05/25/24 18:17 05/25/24 18:17 REINSURANCE ANALYST - Results Labs 05/25/24 16:18 05/25/24 16:18 Labs: Short CBC 05/25/24 Range/Units 16:18 WBC 13.5 H (3.6-11.0) Thou/mm3 Hgb 10.0 L (12.0-16.0) g/dL Hct 32.2 L (36.0-46.0) % Plt Count 719 H D (140-440) Thou/mm3 BMP 05/25/24 16:18 Sodium 141 Potassium 3.9 Chloride 105 Carbon Dioxide 27.2 BUN 12 Creatinine 0.6 Glucose 107 H Calcium 8.8 Liver Function 05/25/24 Range/Units 16:18 Total Bilirubin 0.4 (0.3-1.2) mg/dL AST 15 (0-34) U/L ALT 9 L (10-49) U/L Alkaline Phosphatase 131 H (46-116) U/L Albumin 4.1 (3.5-5.0) gm/dL
[2024-05-25 19:20] LABS: INR 1.1 (0.9-1.3); Partial Thromboplastin Time 30.8 Seconds (22.0-36.0); Prothrombin Time 11.8 Seconds (9.0-12.2)
[2024-05-25 19:28] LABS: Lactate (Lactic Acid) 0.6 mMol/L (0.4-2.0)
[2024-05-25] MEDS: ACETAMINOPHEN IVPB 1,000 MG/100 ML VIAL 250 MG IV (19:33)
[2024-05-25] MEDS: IBUPROFEN TAB 600 MG TABLET PO (19:34)
[2024-05-25 19:37] LABS: B-Type Natriuretic Peptide 24 pg/mL (0-100)
[2024-05-25 19:44] LABS: Collection Type, Urine Clean Catch; Squamous Epithelial Cell,Urine 0 /hpf (0-5)
[2024-05-25] MEDS: LIDOCAINE HCL 1% 20 ML VIAL INFL (19:45)
--- NOTE | 2024-05-25 19:45 | PC.NURSE ---
Dr. Merrill at bedside to discuss plan of care, will be performing I&D at bedside. [employer] via phone Eric #[phone]. Pt verbalized understanding. Consent signed.
[2024-05-25 19:51] LABS: Bacteria,Urine Rare; Bilirubin,Urine Negative (Negative); Blood,Urine 3+ (Negative); Clarity,Urine Turbid (Clear/Hazy); Color,Urine Yellow (Lt Yel-Yel); Glucose, Urine Negative (Negative); Ketones,Urine Negative (Negative); Leukocyte Esterase,Urine Positive (Negative); Nitrite,Urine Negative (Negative); Protein,Urine Trace (Neg - Trace); RBC,Urine 218 /hpf (0-3); Specific Gravity,Urine 1.027 (1.001-1.035); WBC,Urine 56 /hpf (0-5)
[2024-05-25 19:59] LABS: LDH (Lactate Dehydrogenase) 249 U/L (120-246); Lipase 49 U/L (12-53); Magnesium 2.2 mg/dL (1.6-2.6); Troponin I < 0.020 ng/mL (0.0-0.045)
[2024-05-25 20:01] LABS: Procalcitonin 0.05 ng/ml (0.0-0.49)
[2024-05-25] MEDS: ONDANSETRON INJ 2 MG/ML INJ 2 ML 4 MG IV (20:11)
[2024-05-25] MEDS: PIPER/TAZO INJ 3.375 GM in SODIUM CHLORIDE 0.9% (Popper) 50 ML IV (20:12)
--- NOTE | 2024-05-25 20:23 | ESCONSULT_ITS ---
ARCH SUPPORT TECHNICIAN HPI Data of Consult Consult date: 05/25/24 Primary Care Provider: Physician No Primary/Family Consult Narrative Reason for consult: other (infection of wound) History of present illness: Roseanne is a 28yo s/p uncomplicated scheduled RLTCS on 05/05 presenting for concern for wound infection. She noted yesterday redness of her incision, swelling and increasing pain. Hines subjective fevers a week ago that resolved (never took a temp). She notes that when pain increases (waxes and wanes), she will feel chills. No body aches. No drainage. She is breast feeding. cc:: cc: Review of Systems Review of Systems Narrative Review of Systems: Review of Systems Systems Reviewed: All systems reviewed, normal except as documented Constitutional Constitutional: Denies body ache(s), Endorses intermittent chills, Denies recent fever(s) and Denies headache(s) ENT Ears, Nose, Mouth, and Throat: Denies headache(s) and Denies vertigo Cardiovascular Cardiovascular: Denies chest pain, Denies palpitations, Denies dyspnea and Denies syncope Respiratory Respiratory: Denies cough, Denies dyspnea Gastrointestinal Gastrointestinal: Denies nausea and Denies vomiting. Abdominal pain related to incision. Neurologic Neurologic: Denies convulsions, Denies headache(s), Denies other visual disturbances, Denies syncope and Denies vertigo Past Medical History Family History OTHER FAMILY HX: non-contributory Surgical History OTHER SURGICAL HX: 2 sections Social History SOCIAL: . No ETOH, illicit drug use or tobacco Past Medical History Comments PMH COMMENT: benign PMhx Meds Home Medications and Allergies Allergies Allergy/AdvReac Type Severity Reaction Status Date / Time No Known Allergies Allergy Verified 05/25/24 13:17 Exam - ARCH SUPPORT TECHNICIAN Vital Signs Temp Pulse Resp BP Pulse Ox O2 Del Method FiO2 99.8 F 85 20 111/77 99 Room Air 98 05/25/24 18:17 05/25/24 18:17 05/25/24 18:17 05/25/24 18:17 05/25/24 18:17 05/25/24 18:17 05/25/24 18:17 Narrative Exam General: well developed, well nourished, no acute distress, conversant Cardiac: normal heart rate Lungs: breathing without distress Abdomen: soft, no rebound or guarding, pfannenstiel incision well sealed along entire incision line but toward the right side there is obvious redness and induration, approx 5cm vertical, 5cm horizontal. No drainage. Extremities: no pain with palpation of calves, trace edema of BLE After obtaining informed consent via supervisor small appliance assembly discussing r/b/a, patient and I signed consent form for incision and drainage of wound abscess. I&D Procedure Note Area over the cellulitic right aspect of the pfannenstiel incision line was cleaned with betadine swabs x2. Approximately 7cc of 1% lidocaine were injected for local anesthesia. A 1.5cm stab incision was made over the pfannenstiel incision line and there was drainage of bloody fluid (no obvious pus). The area was manipulated to drain as much as possible, a wound culture was obtained. A sterile cotton applicator was used to probe the depth of the incision and the fascia was noted to be intact. A sterile needle drivers' cash clerk (in lieu of amari clamp) was used to explore the wound and ensure there were no loculations (there were none). After the area was drained as much as possible, a saline flush was used to irrigate the area. There was very minimal bleeding after that and the incision was covered with gauze pads. Patient tolerated the procedure well. ARCH SUPPORT TECHNICIAN - Results Labs 05/25/24 16:18 05/25/24 16:18 Labs: Short CBC 05/25/24 Range/Units 16:18 WBC 13.5 H (3.6-11.0) Thou/mm3 Hgb 10.0 L (12.0-16.0) g/dL Hct 32.2 L (36.0-46.0) % Plt Count 719 H D (140-440) Thou/mm3 BMP 05/25/24 16:18 Sodium 141 Potassium 3.9 Chloride 105 Carbon Dioxide 27.2 BUN 12 Creatinine 0.6 Glucose 107 H Calcium 8.8 Cardiac Enzymes 05/25/24 Range/Units 16:18 Troponin I < 0.020 (0.0-0.045) ng/mL Liver Function 05/25/24 Range/Units 16:18 Total Bilirubin 0.4 (0.3-1.2) mg/dL AST 15 (0-34) U/L ALT 9 L (10-49) U/L Alkaline Phosphatase 131 H (46-116) U/L Albumin 4.1 (3.5-5.0) gm/dL Urine 05/25/24 Range/Units 19:25 Urine Color Yellow (Lt Yel-Yel) Urine Clarity Turbid A (Clear/Hazy) Urine pH 7.0 (5.0-7.0) Ur Specific [place] 1.027 (1.001-1.035) Urine Protein Trace (Neg - Trace) Urine Glucose (UA) Negative (Negative) Impressions Impression: Examination: Ultrasound soft tissue pelvis Technique: Grayscale sonographic images soft tissue pelvis Exam date and time: May 25, 2024 1547 hrs. Indications: Status post May 05, 2024 with incision pain and swelling worse today Findings: Complex echogenic mass cystic solid at the area concern right lower abdomen midline pelvic region 5.0 x 2.6 x 2.7 cm most consistent with abscess Impression: Soft tissue mass most consistent with abscess at the area concern anterior right pelvis Assessment and Plan Assessment and plan (1) Abscess after procedure: Status: Acute Assessment and plan: Roseanne is a 28yo s/p uncomplicated scheduled RLTCS on 05/05 with wound cellulitis/abscess now s/p uncomplicated bedside I&D in the ER. She is afebrile, WBC 13. Received 1 dose of IV zosyn in the ER. Abdominal ultrasound showed more solid appearance of the infection and along with the absence of much purulent drainage from I&D, this is consistent with cellulitic process > abscess. Plan: -Discharge to home with close follow up in office with Dr. Hardin this week. Patient instructed to make an appointment. -Rx to pharmacy bactrim DS BID x 10 days. She will need to observe for signs of jaundice in baby since she is breast feeding, but this is the best choice of antibiotic given appearance of the infection. She was advised on importance of finishing the entire course. -Discussed return precautions at length to include increasing redness/induration/purulent drainage of the wound, fevers > 100.4F -Rx motrin 800mg PO Q8hr for pain prn -Discussed wound will drain some bloody fluid for the next few days. Provided package of 4x4s to switch out as they become moist over time. -Wound culture obtained, pending (2) Previous delivery affecting , delivered: Status: Acute
[2024-05-25 20:50] VITALS: BP 104/61; PULSE 75; RESP 18; TEMP 37.2; O2SAT 98
== END 2024-05-25 20:50 | disposition home or self-care (01) ==
PROVIDERS: Physician Assistant; Emergency Provider Emergency Medicine
DX: O86.01 Infection of obstetric surgical wound, superficial incisional site (principal)
CPT/HCPCS: 10060; 36415; 76705; 80053; 81001; 83605; 83615; 83690; 83735; 83880; 84100; 84145; 84484; 85025; 85610; 85730; 87040; 87070; 87086; 87205; 93005; 96365; 96375; 99284; J0131; J2405; J2543; J3490; J7050; A9270

== ENCOUNTER 2024-06-02 12:28 | Emergency (ER) | payer MEDICAID, SELFPAY ==
[2024-06-02 12:30] VITALS: BMI 29.5
[2024-06-02 12:38] VITALS: BP 109/56; PULSE 62; RESP 19; TEMP 36.8; O2SAT 98
--- NOTE | 2024-06-02 13:14 | EDNOTE_ITS ---
ED OB Contraction Preg RMI/HPI General Chief complaint: OB/Uterine Contractions Stated complaint: problems, on ABX since Sunday Time Seen by Provider: 06/02/24 12:39 Source: patient Arrival date/time: 06/02/24 12:28 28-year-old female with no known medical history presents to the emergency room with a chief complaint of tenderness and swelling to her scar x 1 week Mode of arrival: ambulatory Limitations: no limitations Related Data Previous Rx's ?Medication ?Instructions ?Recorded acetaminophen 300 mg-codeine 15 mg 1 tab PO Q12H PRN p ain #14 tabs 05/07/24 tablet ibuprofen 800 mg tablet 800 mg PO Q8H PRN pain #30 t abs 05/25/24 sulfamethoxazole 800 1 tab PO BID #20 tabs mg-trimethoprim 160 mg tablet (Bactrim DS) Allergies Allergy/AdvReac Type Severity Reaction Status Date / Time No Known Allergies Allergy Verified 05/25/24 13:17 Review of Systems Review of Systems Systems Reviewed: All systems reviewed, normal except as documented Constitutional Constitutional: Reports system reviewed and no additional complaints, except as documented, Denies fatigue, Denies fever(s), Denies headache(s) and Denies weakness Eyes Eyes: Reports system reviewed and no additional complaints, except as documented, Denies blurry vision and Denies change in vision ENT Ears, Nose, Mouth, and Throat: Reports system reviewed and no additional complaints, except as documented, Denies otalgia, Denies headache(s), Denies nasal congestion, Denies throat swelling and Denies vertigo Cardiovascular Cardiovascular: Reports system reviewed and no additional complaints, except as documented, Denies chest pain, Denies dyspnea and Denies dyspnea on exertion Respiratory Respiratory: Reports system reviewed and no additional complaints, except as documented, Denies chest congestion, Denies cough, Denies dyspnea, Denies dyspnea on exertion and Denies wheezing Gastrointestinal Gastrointestinal: Reports system reviewed and no additional complaints, except as documented, Denies abdominal pain, Denies cramping, Denies nausea and Denies vomiting Genitourinary Genitourinary: Reports system reviewed and no additional complaints, except as documented Musculoskeletal Musculoskeletal: Reports system reviewed and no additional complaints, except as documented and Denies back pain Integumentary/Breasts Skin/Breast: Reports system reviewed and no additional complaints, except as d ocumented and Reports wounds (Erythema and swelling to the scar) Neurologic Neurologic: Reports system reviewed and no additional complaints, except as documented, Denies confusion, Denies headache(s), Denies lack of coordination, Denies vertigo and Denies weakness Psychiatric Psychiatric: Reports system reviewed and no additional complaints, except as documented, Denies anxiety, Denies confusion, Denies depression, Denies paranoia, Denies suicidal ideation and Denies tactile hallucinations Endocrine Endocrine: Reports system reviewed and no additional complaints, except as documented and Denies fatigue Hematologic/Lymphatic Hematologic/Lymphatic: Reports system reviewed and no additional complaints, except as documented and Denies lymphadenopathy Allergic/Immunologic Allergic/Immunologic: Reports system reviewed and no additional complaints, except as documented, Denies throat swelling, Denies urticaria and Denies wheezing Past Medical History Past Medical History NEUROLOGIC: Negative Neurological Disorders or Seizures CARDIAC: Negative Cardiac Disorders, Cardiac Arrhythmia, Atrial Fibrillation, Angina, Coronary Artery Disease, Atherosclerotic Heart Disease, Aneurysm, Congestive Heart Failure, Congenital Heart Disease, Cardiomyopathy or Deep Vein Thrombosis RESPIRATORY: Negative Chronic Obstructive Pulmonary Disease (COPD) GASTROINTESTINAL: Negative Gastrointestinal Disorders or Hepatitis GENITOURINARY: Negative Genitourinary Disorders or Renal Disease REPRODUCTIVE: Negative Endometriosis, Genital Herpes, Gonorrhea, Pelvic Inflammatory Disease, Previous Pregnancies, Syphilis or Uterine Prolapse MUSCULOSKELETAL: Negative Musculoskeletal Disorders or Carpal Tunnel Syndrome ENT: Negative Cataracts ENDOCRINE: Negative Endocrine Disorders, Diabetes Mellitus Type 1 or Diabetes Mellitus Type 2 HEMATOLOGIC: Negative Blood Disorders OTHER HISTORY: Negative Hospitalization, Autoimmune Disease, Down Syndrome, Developmental Delay, Shingles, Falls, Blood Transfusions, Blood Transfusion Reaction, Anesthesia Reactions, Organ Transplant, Chemotherapy, Radiation Therapy, Hyperbaric Therapy, MRSA, VRSA, Vancomycin-Resistant Enterococci, Human Immunodeficiency Virus (HIV), Chicken Pox, Measles, Mumps, Rubella (Sami Measles), Pertussis, Clostridium Difficile or Cancer Family History FAMILY HISTORY: Negative Family Psychiatric Problems, Family Respiratory Disorders, Family Cardiac Disorders, Family Gastrointestinal Problems, Family Cancer, Family Surgery or Family Anesthesia Reaction Surgical History SURGICAL: Positive Abdominal Surgery and Section (MAY 05, 2024); Negative Cardiac Surgery, Open Heart Surgery, Coronary Artery Bypass Graft, Valve Replacement, Vascular Surgery, Coronary Stent, Cardiac Catheterization, Pacemaker, Angiogram, Auto Implanted Cardiovert Defib, Carotid Endarterectomy, Endocrine Surgery, Thyroidectomy, Ear Surgery, Tympanostomy Tube, Eye Surgery, Nose Surgery, Oral Surgery, Tonsillectomy, Adenoidectomy, Cochlear Implant, Corneal Transplant, Throat Surgery, Tracheostomy, Gastric Bypass Surgery, Gastrostomy, Bowel Surgery, Nephrectomy, Transurethral Resection, Joint Replacement, Amputation, Open Reduction Internal Fixation, Arthroscopy, Neurologic Surgery, Brain Shunt, Mastectomy, Lumpectomy, Hysterectomy, Tubal Ligation, Vasectomy or Organ Transplant Social History SMOKING STATUS: Never smoker ED Exam General Limitations: Present no limitations General appearance: Present alert and in no apparent distress Head Head exam: Present atraumatic Eye Eye exam: Present normal appearance, PERRL and EOMI ENT ENT exam: Present normal exam, normal oropharynx and mucous membranes moist Neck Neck exam: Present normal inspection, full ROM and trachea midline Chest Chest inspection: Present normal inspection and symmetric chest wall rise Respiratory Respiratory exam: Present normal lung sounds bilaterally Cardiovascular Cardiovascular exam: Present regular rate, normal rhythm and normal heart sounds Abdominal Exam Abdominal exam: Present soft, tenderness, normal bowel sounds and scar (C- section scar that is erythemic) Abdominal tenderness: Present suprapubic and mild Extremities Exam Extremities exam: Present normal inspection and full ROM Back Exam Back exam: Present normal inspection and full ROM Neurological Exam Neurological exam: Present alert, oriented X3 and CN II-XII intact Psychiatric Psychiatric exam: Present normal affect and normal mood Skin Skin exam: Present warm, dry, intact and normal color Course Quality Measures none Vital Signs Vital signs: Vital Signs Temperature 98.2 F 06/02/24 12:38 Pulse Rate 62 06/02/24 12:38 Respiratory Rate 19 06/02/24 12:38 Blood Pressure 109/56 L 06/02/24 12:38 Pulse Oximetry (%) 98 06/02/24 12:38 Oxygen Delivery Method Room Air 06/02/24 12:38 O2 saturation 98% on room air OB/Uterine Contractions MDM Narrative MDM Narrative:: 28-year-old female with no known medical history presents to the emergency room with a chief complaint of tenderness and swelling to her scar x 1 week Patient is hemodynamically stable. She is afebrile and not tachycardic. Physical examination shows erythema as well as mild swelling to the right side of her scar. Patient states she was seen by her UNDERWRITING SPECIALIST and was put on antibiotics which she has not finished. Patient states the wound has actually gotten better but states she came to the emergency room because it has not went away. At this time there is no abscess or drainage. The patient is on antibiotics that were prescribed by her UNDERWRITING SPECIALIST. I did not make a change on antibiotics due to the patient breast-feeding. Patient was educated to follow-up with her UNDERWRITING SPECIALIST and return to the emergency room for any evidence of worsening signs or symptoms Patient data External records reviewed:: [facility] previous records Clinical information provided by:: patient Social determinants that could affect healthcare access:: none Patient has the following chronic illnesses:: No chronic illness How is presenting disease/condition affected by chronic disease/condition?: no chronic disease Evaluation data The following diagnostics were reviewed and interpreted by me:: lab results and radiology exam(s) Lab and/or radiology exams considered but not ordered:: Labs and radiology exams considered and ordered Interpretation Summary: N/A Medications / Prescriptions Medications or Prescriptions considered but not ordered:: Medication not given Medication administrations:: Medication not given Consultations Consultation(s) initiated? (list below): No Diagnosis OB Contractions Differential Diagnosis: other ( complications/cellulitis) Most likely diagnosis given after review of the tests above:: Cellulitis to the scar Admission Indicated Admission indicated?: not indicated Explain why admission is indicated or not indicated:: N/A Admission Request Was there a request for admission?: No Disposition Plan Disposition Plan: Discharge Discharge Attestation Discharge Attestation: The patient and all family members were given an opportunity to ask questions and understood the discharge instructions. Discharge instructions specifically effects, indications for sooner follow up or return to the emergency department, and the expected course of current diagnosis. Patient condition: Stable Discharge Plan Plan Patient Disposition: HOME (Self Care) Disposition Comment: Stable Prescriptions/Referrals Prescriptions/Med Rec: No Action acetaminophen-codeine 300-15 mg tablet 1 tab PO Q12H PRN (Reason: pain) Qty: 14 0RF ibuprofen 800 mg tablet 800 mg PO Q8H PRN (Reason: pain) Qty: 30 0RF sulfamethoxazole-trimethoprim [Bactrim DS] 800-160 mg tablet 1 tab PO BID Qty: 20 0RF Problem List Clinical Impression: section wound complication Patient/Caregiver Discharge Instructions Additional Instructions: Por favor, acuda a mcdonald obstetra/ginec?logo en las pr?ximas 24 a 48 horas. Contin?e tomando los antibi?ticos que le recet? mcdonald obstetra/ginec?logo. En delaney momento, la herida no est? lista para zenobia incisi?n y drenaje. Contin?e tomando laura antibi?ticos y, si la herida contin?a empeorando, regrese a la klever de emergencias de inmediato. Print Language: Jordanian Stand Alone Forms: Akanksha Award Info., Patient Portal Info Letter PA/AUTO TIRE RECAPPER Supervising Physician PA/AUTO TIRE RECAPPER Supervising Physician: Dr. Valladares
== END 2024-06-02 12:57 | disposition home or self-care (01) ==
LOC: SERX 13:09
PROVIDERS: Emergency Provider Emergency Medicine
DX: O90.89 Other complications of the puerperium, not elsewhere classified (principal); R22.2 Localized swelling, mass and lump, trunk
CPT/HCPCS: 99281